=== PATIENT | female | born 2000 | race African-American/Black ===

== ENCOUNTER 2025-02-08 12:37 | Emergency (ER) | payer MEDICAID ==
[~2025-02-08] VITALS: Ht 157.5 cm; Wt 50.4 kg
[2025-02-08 12:40] VITALS: O2SAT 98
[2025-02-08 12:55] VITALS: BP 108/75; PULSE 98; RESP 16; TEMP 37.2; O2SAT 100
[2025-02-08 14:02] LABS: BASOPHILS % 0.9 % (0.0-2.0); EOSINOPHILS % 0.2 % (0.0-5.0); HEMATOCRIT. 38.9 % (36.0-48.0); HEMOGLOBIN. 12.7 g/dL (12.0-16.0); LYMPHOCYTES % 13.0 % (20.0-50.0); MEAN PLATELET VOLUME 9.1 fl (7.4-10.4); MONOCYTES % 13.0 % (2.0-8.0); NEUTROPHILS % 72.9 % (40.0-76.0); PLATELET 242 x1000/uL (130-400); RED BLOOD CELL COUNT 4.68 mill/uL (4.2-5.4); RED CELL DISTRIBUTION WIDTH 12.7 % (11.6-14.6)
[2025-02-08 14:20] LABS: CREATININE 0.7 mg/dL (0.6-1.0); UREA NITROGEN BLOOD 7 mg/dL (9-23)
[2025-02-08] MEDS ORDERED: DEXAMETHASONE 0.5MG/5ML ORAL SYR PO ONE (14:30)
[2025-02-08 14:34] LABS: HCG SCREEN NEGATIVE
[2025-02-08 14:35] LABS: PROTEIN TOTAL 7.3 g/dL (6.0-8.3)
[2025-02-08 14:37] LABS: ASPARTATE AMINOTRANSFERASE 19 IU/L (<34); BILIRUBIN DIRECT 0.2 mg/dL (<=3.0); BILIRUBIN TOTAL 0.6 mg/dL (0.1-1.0)
[2025-02-08 14:42] LABS: CLARITY URINE CLOUDY (CLEAR); COLOR URINE YELLOW (YELLOW); GLUCOSE URINE NEGATIVE (NEGATIVE); KETONES URINE NEGATIVE (NEGATIVE); LEUKOCYTE ESTERASE URINE TRACE (NEGATIVE); NITRITE URINE NEGATIVE (NEGATIVE); OCCULT BLOOD URINE NEGATIVE (NEGATIVE); PH URINE 5.5 (4.5-8.0); PROTEIN URINE NEGATIVE (NEGATIVE); SPECIFIC GRAVITY URINE 1.020 (1.005-1.030); UROBILINOGEN URINE 0.2 E.U./dL (0.2-1.0)
[2025-02-08 14:54] LABS: *AMPHETAMINES SCREEN URINE NEGATIVE (NEGATIVE); *BARBITURATES SCREEN URINE NEGATIVE (NEGATIVE); *BENZODIAZEPINES SCREEN URINE NEGATIVE (NEGATIVE); *COCAINE SCREEN URINE NEGATIVE (NEGATIVE); CANNABINOID URINE SCREEN NEGATIVE (NEGATIVE); ECSTASY MDMA SCREEN URINE NEGATIVE (NEGATIVE); METHADONE URINE SCREEN NEGATIVE (NEGATIVE); OPIATES URINE SCREEN NEGATIVE (NEGATIVE); PHENCYCLIDINE URINE SCREEN NEGATIVE (NEGATIVE)
[2025-02-08 14:57] LABS: SQUAMOUS EPITHELIAL CELL URINE 1+ /lpf (RARE/1+)
[2025-02-08 14:58] LABS: BACTERIA URINE 4+; RBC URINE 0-2 /hpf (0-2)
[2025-02-08] MEDS: ACETAMINOPHEN 325MG TABLET PO ONE (15:27)
[2025-02-08] MEDS: VISCOUS LIDOCAINE 2% 15 ML UDC MM ONE (15:28)
[2025-02-08] MEDS: MAGNESIUM/ALUMINUM HYDROXIDE/SIMETHICONE 30ML UDC PO ONE (15:28)
[2025-02-08] MEDS: DEXAMETHASONE 4MG TABLET PO SCH (15:28)
[2025-02-08] MEDS: FAMOTIDINE 20MG TABLET PO ONE (15:28)
[2025-02-08] MEDS ORDERED: BENZ1LOZ73 MM (16:17)
[2025-02-08] MEDS ORDERED: ACET-2708 MT (16:17)
[2025-02-08] MEDS ORDERED: FAMO-135 MT (16:17)
== END 2025-02-08 16:36 | disposition home or self-care (01) ==
LOC: ER 12:37
DX: J02.9 Acute pharyngitis, unspecified (principal); K21.9 Gastro-esophageal reflux disease without esophagitis; Z79.899 Other long term (current) drug therapy
CPT/HCPCS: 99284; 76705; 80076; 80305; 80048; 81003; 81025; 84703; 87430; 83690; 85025; 87070; 36415; J8540